=== PATIENT | female | born 1990 | race Two or more races ===

== ENCOUNTER 2022-03-26 06:19 | Inpatient (IN) | payer OTHER ==
[~2022-03-26] VITALS: Ht 167.6 cm; Wt 3.2 kg
[2022-03-26] MEDS ORDERED: ZOFRAN8 MG PO (08:38)
[2022-03-26] MEDS ORDERED: PRENATAL TABLE1 EAC1 PO (08:39)
== END 2022-03-28 16:06 | disposition home or self-care (01) | DRG 788 ==
LOC: LDR 06:19 → OB/GYN 23:19
PROVIDERS: ADMIT Specialist; ATTEND Specialist
PROC: 4A1HXCZ Monitoring of Products of Conception, Cardiac Rate, External Approach (ICD-10-PCS; 2022-03-26)
PROC: 10D00Z1 Extraction of Products of Conception, Low, Open Approach (ICD-10-PCS; principal; 2022-03-26 21:45)
DX: O62.1 Secondary uterine inertia (principal); Z3A.39 39 weeks gestation of pregnancy; Z37.0 Single live birth; Z20.822 Contact with and (suspected) exposure to COVID-19